=== PATIENT | male | born 1940 | race Native Hawaiian/Other Pacific Islander ===

== ENCOUNTER 2016-11-24 13:32 | Outpatient (CLI) | payer OTHER ==
[~2016-11-24 13:32] MED LIST: CYCL10TA35 PO; DEPO-TESTOS200 MG/M1 IM; LEVO0.0218 PO
[2016-11-24 14:06] LABS: PLATELET COUNT 149 K/uL (142-355)
== END 2016-11-24 13:35 | disposition home or self-care (01) ==
LOC: LABW 13:32
PROVIDERS: Internal Medicine Gastroenterology
DX: K92.2 Gastrointestinal hemorrhage, unspecified (principal)
CPT/HCPCS: 36415; 82728; 83540; 83550; 85027

== ENCOUNTER 2016-12-05 08:42 | Day surgery (SDC) | payer OTHER ==
[2016-12-05 09:22] LABS: PLATELET COUNT 144 K/uL (142-355)
[2016-12-05 09:30] LABS: POTASSIUM 4.4 mmol/L (3.6-5.2); SODIUM 140 mmol/L (136-145)
== END 2016-12-05 14:40 | disposition home or self-care (01) ==
LOC: OR 08:42
PROVIDERS: Student in an Organized Health Care Education/Training Program
PROC: 0RBP0ZZ Excision of Left Wrist Joint, Open Approach (ICD-10-PCS; principal; 2016-12-05)
DX: C49.12 Malignant neoplasm of connective and soft tissue of left upper limb, including shoulder (principal); M67.432 Ganglion, left wrist
CPT/HCPCS: 80053; 85027; J0690; J2001; J2250; J2704; J2765; J3010; S0028

== ENCOUNTER 2017-01-22 10:51 | Outpatient (CLI) | payer OTHER | END 2017-01-22 19:17 | disposition home or self-care (01) | LOC: MRI 10:51 | DX: C49.8 Malignant neoplasm of overlapping sites of connective and soft tissue (principal) | CPT/HCPCS: 36415; 82565; 84520; A9576 ==

== ENCOUNTER 2017-04-30 10:00 | Outpatient (CLI) | payer OTHER ==
[2017-04-30 10:30] LABS: PLATELET COUNT 157 K/uL (142-355)
== END 2017-04-30 19:23 | disposition home or self-care (01) ==
LOC: LABW 10:00
DX: K92.2 Gastrointestinal hemorrhage, unspecified (principal)
CPT/HCPCS: 36415; 85027

== ENCOUNTER 2018-01-01 09:51 | Outpatient (CLI) | payer OTHER | END 2018-01-01 22:24 | disposition home or self-care (01) | LOC: RESP 09:51 | DX: R07.89 Other chest pain (principal); R06.09 Other forms of dyspnea; I10 Essential (primary) hypertension ==

== ENCOUNTER 2018-07-22 22:18 | Emergency (ER) | payer OTHER ==
[~2018-07-22] VITALS: Ht 177.8 cm; Wt 80.3 kg
[2018-07-22 23:01] LABS: PLATELET COUNT 144 K/uL (142-355)
[2018-07-22 23:19] LABS: POTASSIUM 4.5 mmol/L (3.6-5.2)
[2018-07-23 01:31] VITALS: BP 194/89; TEMP 98.8
== END 2018-07-23 01:32 | disposition home or self-care (01) ==
LOC: ED 22:18
PROVIDERS: Emergency Medicine Emergency Medical Services
DX: G44.89 Other headache syndrome (principal)
CPT/HCPCS: 36415; 80053; 85027; 99283

== ENCOUNTER 2019-03-31 15:43 | Outpatient (CLI) | payer OTHER ==
[2019-03-31 16:07] LABS: PLATELET COUNT 148 K/uL (142-355)
== END 2019-03-31 21:38 | disposition home or self-care (01) ==
LOC: LABW 15:43
PROVIDERS: Physician Assistant
DX: M25.561 Pain in right knee (principal); M25.461 Effusion, right knee
CPT/HCPCS: 36415; 83986; 85027; 85651; 86140; 87070; 87205; 89050; 89060

== ENCOUNTER 2019-04-18 12:46 | Outpatient (CLI) | payer OTHER | END 2019-04-18 22:47 | disposition home or self-care (01) | LOC: MRI 12:46 | DX: M25.561 Pain in right knee (principal); M25.562 Pain in left knee ==

== ENCOUNTER 2020-03-10 16:18 | Outpatient (CLI) | payer OTHER | END 2020-03-10 21:54 | disposition home or self-care (01) | LOC: RAD 16:18 | PROVIDERS: ATTEND Physician Assistant | DX: M25.512 Pain in left shoulder (principal) ==

== ENCOUNTER 2021-06-28 08:55 | Outpatient (CLI) | payer OTHER | END 2021-06-28 19:00 | disposition home or self-care (01) | LOC: RAD 08:55 | PROVIDERS: ATTEND Orthopaedic Surgery | DX: M25.561 Pain in right knee (principal); M25.562 Pain in left knee ==

== ENCOUNTER 2021-11-02 08:28 | Outpatient (CLI) | payer OTHER | END 2021-11-02 19:18 | disposition home or self-care (01) | LOC: MRI 08:28 | PROVIDERS: ATTEND Internal Medicine | DX: R79.89 Other specified abnormal findings of blood chemistry (principal) | CPT/HCPCS: 36415; 82565; 84520; A9576 ==

== ENCOUNTER 2022-02-14 03:59 | Emergency (ER) | payer OTHER ==
[~2022-02-14] VITALS: Ht 172.7 cm; Wt 79.8 kg
[2022-02-14 04:00] VITALS: TEMP 98.7
[2022-02-14 05:05] VITALS: BP 151/93
== END 2022-02-14 05:05 | disposition home or self-care (01) ==
LOC: ED 03:59
DX: F45.8 Other somatoform disorders (principal)
CPT/HCPCS: 36600; 82805; 93005; 99283

== ENCOUNTER 2022-06-14 09:11 | Outpatient (CLI) | payer OTHER | END 2022-06-14 19:05 | disposition home or self-care (01) | LOC: RAD 09:11 | PROVIDERS: ATTEND Physician Assistant | DX: M25.512 Pain in left shoulder (principal) ==